=== PATIENT | female | born 1995 | race Two or more races ===

== ENCOUNTER → 2017-03-03 | Day surgery (SDC) | payer BC, SELFPAY ==
[~2017-03-03] VITALS: Ht 157.5 cm; Wt 63.0 kg
[~2017-03-03] MED LIST: NORCO 5-325 TA1 EACH PO
--- NOTE | ~2017-03-03 | OR ---
PATIENT'S NAME: JESSA RIVERA [facility] AGE: 21 Y [address] ROOM: [place] [id number] LOCATION: [facility] [place] ADMIT DATE: 03/03/2017 OR/Procedure Report DISCHARGE DATE: FAMILY PHYSICIAN: Vonnie Bennett MD ATTENDING PHYSICIAN: Contreras Altman SURGEON: Contreras Altman MD COMMUNICATION ASSISTANT: Alex Ya PA-C DATE OF PROCEDURE: 03/03/2017 REFERRING PHYSICIAN: Vonnie Bennett MD PREOPERATIVE DIAGNOSIS: Right breast mass. POSTOPERATIVE DIAGNOSIS: Right breast mass. PROCEDURE PERFORMED: Right breast excisional biopsy. FINDINGS: A fibrous capsule was present with dense lipomatous tissue. ESTIMATED BLOOD LOSS: Less than 10 mL. COMPLICATIONS: None. INDICATIONS FOR PROCEDURE: The patient is a 21-year-old female, who presented with a right breast mass. We discussed observation versus excision versus core needle biopsy, the risks, benefits, and alternatives, and she wished to proceed for an excisional biopsy. DESCRIPTION OF PROCEDURE: The patient was taken to the operating room. She was supine. She was given sedation and laryngeal mask airway was placed. Her right breast was prepped with ChloraPrep and sterilely draped. Local anesthetic was infiltrated overlying this palpable mass. A transverse incision was created and carried into subcutaneous tissues. The density was palpable. A fibrous capsule was identified, however, just exterior to this was the material that was somewhat lipomatous. This was dissected around circumferentially. It was consistent with the palpable mass and it was sent for pathologic evaluation. The area was approximately 2 cm in size. The operative field was inspected. It appeared hemostatic. Deep dermal layers were approximated with 3-0 Vicryl suture and skin closure with 4-0 Monocryl suture. Steri-Strips and sterile dressings were placed. The patient was extubated and sent to recovery in good condition. PATIENT'S NAME: JESSA RIVERA [facility] AGE: 21 Y [address] ROOM: [place] [id number] LOCATION: [facility] [place] ADMIT DATE: 03/03/2017 OR/Procedure Report DISCHARGE DATE: FAMILY PHYSICIAN: Vonnie Bennett MD ATTENDING PHYSICIAN: Contreras Altman MD BJO/modl /[id number] d: 03/03/17 2252 t: 03/10/17 1122, OPERATIVE SUMMARY
== END | disposition disaster alternative care site (69) ==
LOC: GPOC 03-02 16:00 → GSDC 09:23 → GPOC 16:00
PROC: 0HBT0ZZ Excision of Right Breast, Open Approach (ICD-10-PCS; principal; 2017-03-03)
DX: D24.1 Benign neoplasm of right breast (principal); Z98.890 Other specified postprocedural states
CPT/HCPCS: J0690; J1100; J2405; J7120